=== PATIENT | male | born 2000 | race Hispanic/Latino ===

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

== ENCOUNTER 2020-03-27 01:05 | Emergency (ER) | payer OTHER, SELFPAY ==
[2020-03-27] MEDS ORDERED: Fentanyl 100 MCG/2 ML VIAL ONE ×5 (01:10→02:30)
[2020-03-27] MEDS ORDERED: Rocuronium Bromide 10 MG/ML (10ML VIAL) ONE (01:16)
[2020-03-27 01:22] LABS: #Basophils 0.1 thou/uL (0.0-0.2); #Eosinphils 0.1 thou/uL (0.0-0.7); #Lymphocytes 3.6 thou/uL (1.20-3.40); #Monocytes 0.5 thou/uL (0.11-0.59); #Neutrophils 5.5 thou/uL (1.40-6.50); %Basophils 0.7 % (0.0-1.0); %Eosinophils 1.3 % (0.0-10.0); %Lymphocytes 36.7 % (21.0-51.0); %Monocytes 5.2 % (0.0-10.0); %Neutrophils 56.1 % (42.0-75.0); Hemoglobin 16.4 g/dL (14.0-18.0); Mean Corpuscular HGB CONC 34.7 g/dL (32.0-36.0); Mean Corpuscular Hemoglobin 32.1 pg (27.0-31.0); Mean Corpuscular Volume 92.7 fL (78.0-98.0); Mean Platelet Volume 8.2 fL (7.4-10.4); Platelet Count 213 thou/uL (130-400); RBC Distribution Width 12.4 % (11.5-14.5); Red Blood Cell (RBC) Count 5.09 mill/uL (4.70-6.10); White Blood Cell (WBC) Count 9.7 thou/uL (4.8-10.8)
[2020-03-27 01:29] LABS: PTT 27.8 sec (22.9-36.1); Prothrombin Time 12.9 sec (12.0-14.7)
[2020-03-27] MEDS ORDERED: Fentanyl CADD 100 ML IV SCH (01:30)
[2020-03-27 01:38] LABS: Actual Bicarbonate (HCO3a) 21.8 mEq/L (22-28); Analyzer IN Cardio ER; Base Excess (BEa) -3.9 mEq/L (-2.0 to +3.0); CO2 Tension 41.9 mmHg (35.0-45.0); Calcium, Ionized (arterial) 1.17 mmol/L (1.12-1.30); Carboxyhemoglobin (COHb) 0.7 gm% (0.0-3.0); Hemoglobin (Hb) 17.1 g/dL (14.0-18.0); O2 Tension (PaO2), arterial 143.9 mmHg (80.0-100.0); Potassium - ABG Lab 3.82 mmol/L (3.70-5.30); pH, Arterial 7.33 (7.35-7.45)
[2020-03-27 01:39] LABS: Puncture Site RRA
[2020-03-27 01:40] LABS: ALV-art Gradient 88.925 mmHg (0-20)
[2020-03-27 01:43] LABS: Acetaminophen Less than 6.0 mcg/mL (10.0-30.0); Alcohol 174 mg/dL (Less than 10); Salicylate Less than 8.0 mg/dL (15.0-30.0)
[2020-03-27 01:54] LABS: ALT (SGPT) 43 U/L (8-55); AST (SGOT) 57 U/L (5-34); Albumin 4.3 g/dL (3.5-5.0); Alkaline Phosphatase 96 U/L (40-110); Anion Gap 19 mmol/L (10-20); BUN (Urea Nitrogen) 11 mg/dL (8.9-20.6); Bilirubin, Total 0.6 mg/dL (0.2-1.2); Calc. Creatinine Clearance 0 mL/min (70-130); Calcium 8.6 mg/dL (7.8-10.44); Carbon Dioxide 19 mmol/L (22-29); Chloride 108 mmol/L (98-107); Globulin 2.9 g/dL (2.4-3.5); Glucose 119 mg/dL (70-105); Potassium 3.6 mmol/L (3.5-5.1); Protein, Total 7.2 g/dL (6.0-8.3); Sodium 142 mmol/L (136-145)
[2020-03-27] MEDS ORDERED: Propofol 1,000 MG/100 ML VIAL IV ONE (02:13)
[2020-03-27] MEDS ORDERED: Ondansetron PF 4 MG/2 ML Vial IVP PRN (02:52)
[2020-03-27] MEDS ORDERED: Dextrose 5% in Water 1,000 ML IV PRN (02:52)
[2020-03-27] MEDS ORDERED: TETANUS AND DIPHTHERIA TOX/PF 0.5 ML DISP.SYRIN IM ONE (02:52)
[2020-03-27] MEDS ORDERED: hydrALAZINE 20 MG/ML VIAL SLOW IVP PRN (02:52)
[2020-03-27] MEDS ORDERED: Dextrose 50% Abboject 50 ML SYRINGE SLOW IVP PRN (02:52)
[2020-03-27] MEDS ORDERED: Ventilator Sedation Protocol 1 EACH FS ONE (02:57)
[2020-03-27] MEDS ORDERED: Lactated Ringer's 1,000 ML IV SCH ×2 (03:00)
[2020-03-27] MEDS ORDERED: Sodium Chloride 0.9% 1,000 ML IV SCH (03:00)
[2020-03-27] MEDS ORDERED: Lorazepam 2 MG/ML VIAL ONE (03:01)
[2020-03-27] MEDS ORDERED: Morphine 2 MG/ML VIAL SLOW IVP PRN (03:15)
[2020-03-27] MEDS ORDERED: DISCONTINUE PREVIOUS NARCOTIC PAIN MEDICATIONS AND BENZODIAZEPINES FS SCH (03:15)
[2020-03-27] MEDS ORDERED: Propofol BOLUS 1,000 MG/100 ML VIAL IV PRN (03:15)
[2020-03-27] MEDS ORDERED: Lorazepam 2 MG/ML VIAL SLOW IVP PRN (03:15)
[2020-03-27] MEDS ORDERED: Propofol 1,000 MG/100 ML VIAL IV PRN (03:15)
[2020-03-27] MEDS ORDERED: Fentanyl BOLUS 250 ML IVPB PRN (03:15)
--- NOTE | 2020-03-27 07:28 | RAD ---
ONE VIEW PELVIS: HISTORY: Trauma. Pain. FINDINGS: Intact bony pelvis. No fracture. IMPRESSION: No fracture. POS: PPP
--- NOTE | 2020-03-27 07:37 | RAD ---
ONE VIEW CHEST: HISTORY: Trauma. Pain. FINDINGS: Endotracheal tube at the level of the clavicles. Normal cardiac silhouette. Lungs and pleural space s are clear. No pneumothorax or acute osseous abnormalities. IMPRESSION: 1. No acute cardiopulmonary process. 2. Endotracheal tube at the level of the clavicles. POS: PPP
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
[2020-03-27] MEDS ORDERED: Famotidine/PF 20 mg/2ml Vial SLOW IVP SCH (09:00)
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
[2020-03-27] MEDS ORDERED: Iopamidol 370 76% 100 ML VIAL ONE (14:14)
== END 2020-03-27 04:05 ==
LOC: ERS 01:05
DX: S06.0X9A Concussion with loss of consciousness of unspecified duration, initial encounter (principal); S22.31XA Fracture of one rib, right side, initial encounter for closed fracture; S27.329A Contusion of lung, unspecified, initial encounter; S00.03XA Contusion of scalp, initial encounter; S00.83XA Contusion of other part of head, initial encounter; S50.812A Abrasion of left forearm, initial encounter; S80.812A Abrasion, left lower leg, initial encounter; S80.811A Abrasion, right lower leg, initial encounter; S60.511A Abrasion of right hand, initial encounter; S30.811A Abrasion of abdominal wall, initial encounter; S00.212A Abrasion of left eyelid and periocular area, initial encounter; F17.210 Nicotine dependence, cigarettes, uncomplicated; Z23 Encounter for immunization; W17.89XA Other fall from one level to another, initial encounter
CPT/HCPCS: 31500; 36415; 36600; 70450; 71045; 71260; 72125; 72170; 74177; 80053; 80307; 82805; 83690; 85025; 85610; 85730; 86850; 86900; 86901; 93005; 94002; 94760; 96365; 96375; 96376; 99292; G0390; J2060; J2270; J2704; J3010; Q9967

== ENCOUNTER 2020-03-27 22:49 | Inpatient (IN) | payer OTHER, SELFPAY ==
[2020-03-27 23:24] LABS: #Eosinphils 0.1 thou/uL (0.0-0.7); #Lymphocytes 2.6 thou/uL (1.20-3.40); #Monocytes 1.1 thou/uL (0.11-0.59); #Neutrophils 9.6 thou/uL (1.40-6.50); %Eosinophils 0.5 % (0.0-10.0); %Lymphocytes 19.3 % (21.0-51.0); %Neutrophils 72.2 % (42.0-75.0); Hemoglobin 15.3 g/dL (14.0-18.0); Mean Corpuscular HGB CONC 34.3 g/dL (32.0-36.0); Mean Corpuscular Hemoglobin 32.1 pg (27.0-31.0); Mean Corpuscular Volume 93.8 fL (78.0-98.0); Platelet Count 165 thou/uL (130-400); RBC Distribution Width 12.5 % (11.5-14.5); Red Blood Cell (RBC) Count 4.75 mill/uL (4.70-6.10); White Blood Cell (WBC) Count 13.2 thou/uL (4.8-10.8)
[2020-03-27 23:49] LABS: ALT (SGPT) 61 U/L (8-55); AST (SGOT) 169 U/L (5-34); Albumin 4.3 g/dL (3.5-5.0); Alkaline Phosphatase 94 U/L (40-110); Anion Gap 15 mmol/L (10-20); BUN (Urea Nitrogen) 12 mg/dL (8.9-20.6); Bilirubin, Total 1.6 mg/dL (0.2-1.2); Calc. Creatinine Clearance 0 mL/min (70-130); Carbon Dioxide 26 mmol/L (22-29); Chloride 103 mmol/L (98-107); Globulin 2.9 g/dL (2.4-3.5); Glucose 110 mg/dL (70-105); Potassium 3.7 mmol/L (3.5-5.1); Protein, Total 7.2 g/dL (6.0-8.3); Sodium 140 mmol/L (136-145)
[2020-03-28 00:06] LABS: Bacteria/HPF None Seen HPF (None Seen); Bilirubin Negative (Negative); Blood, Urine 3+ (Negative); Clarity Clear (Clear); Glucose, Urine (Dipstick) Normal (Negative); Ketone, Urine 10 mg/dL (Negative); Leukocyte Negative Leu/uL (Negative); Nitrite Negative (Negative); Protein, Urine (Dipstick) 30 mg/dL (Neg-Trace); RBC/HPF Greater than 50 HPF (0-3); Specific Gravity, Urine 1.022 (1.002-1.036); Squamous Epithelial 0-3 HPF (0-3); Urobilinogen Normal mg/dL (Less than 2); pH, Urine 5.5 (5.0-9.0)
[2020-03-28 00:10] LABS: Amphetamine Not Detected (NotDetected); Cocaine Metabolite Screen Not Detected (NotDetected); Medtox Reader # READER 1; Methamphetamine Not Detected (NotDetected); Opiate Screen Not Detected (NotDetected); Phencyclidine (PCP) Not Detected (NotDetected); THC/Cannabinoid Screen Detected (NotDetected)
[2020-03-28 00:11] LABS: Barbiturates Screen Not Detected (NotDetected); Benzodiazepine Screen Detected (NotDetected); Medtox Control Line Valid? VALID (VALID); Methadone Not Detected (NotDetected); Oxycodone Screen Not Detected (NotDetected); Tricyclic Screen Not Detected (NotDetected)
[2020-03-28 00:18] LABS: CK (CPK) 9111 U/L (30-200)
[2020-03-28] MEDS ORDERED: Ondansetron PF 4 MG/2 ML Vial IVP PRN (00:19)
[2020-03-28] MEDS ORDERED: Dextrose 50% Abboject 50 ML SYRINGE SLOW IVP PRN (00:19)
[2020-03-28] MEDS ORDERED: Ondansetron ODT 4 MG TAB PO PRN (00:19)
[2020-03-28] MEDS ORDERED: hydrALAZINE 20 MG/ML VIAL SLOW IVP PRN (00:19)
[2020-03-28] MEDS ORDERED: Dextrose 5% in Water 1,000 ML IV PRN (00:19)
[2020-03-28 00:52] LABS: Phosphorus 3.3 mg/dL (2.3-4.7)
[2020-03-28 01:41] VITALS: BMI 37.1
[2020-03-28] MEDS: Sodium Chloride 0.9% 1,000 ML IV SCH ×4 (01:47→17:48)
[2020-03-28] MEDS: Cyclobenzaprine 10 MG TAB PO PRN ×3 (01:47→20:40)
[2020-03-28] MEDS: traMADol HCl 50 MG TAB PO SCH ×4 (05:15→19:30)
[2020-03-28] MEDS: Acetaminophen 325 MG TAB PO SCH ×4 (05:16→19:29)
[2020-03-28 05:58] LABS: #Eosinphils 0.1 thou/uL (0.0-0.7); #Monocytes 0.6 thou/uL (0.11-0.59); #Neutrophils 5.4 thou/uL (1.40-6.50); %Basophils 0.2 % (0.0-1.0); %Eosinophils 1.4 % (0.0-10.0); %Lymphocytes 24.9 % (21.0-51.0); %Monocytes 7.2 % (0.0-10.0); %Neutrophils 66.4 % (42.0-75.0); Hemoglobin 14.4 g/dL (14.0-18.0); Mean Corpuscular HGB CONC 34.3 g/dL (32.0-36.0); Mean Corpuscular Hemoglobin 32.3 pg (27.0-31.0); Mean Corpuscular Volume 94.1 fL (78.0-98.0); Mean Platelet Volume 8.4 fL (7.4-10.4); Platelet Count 142 thou/uL (130-400); RBC Distribution Width 12.4 % (11.5-14.5); Red Blood Cell (RBC) Count 4.45 mill/uL (4.70-6.10); White Blood Cell (WBC) Count 8.1 thou/uL (4.8-10.8)
[2020-03-28 06:13] LABS: Anion Gap 11 mmol/L (10-20); BUN (Urea Nitrogen) 13 mg/dL (8.9-20.6); Calc. Creatinine Clearance 212 mL/min (70-130); Calcium 8.4 mg/dL (7.8-10.44); Carbon Dioxide 27 mmol/L (22-29); Chloride 108 mmol/L (98-107); Glucose 100 mg/dL (70-105); Potassium 3.8 mmol/L (3.5-5.1); Sodium 142 mmol/L (136-145)
[2020-03-28 06:26] LABS: CK (CPK) 6145 U/L (30-200)
[2020-03-28 08:34] LABS: SARS-CoV-2 PCR by NAA Not Detected (NotDetected)
[2020-03-28] MEDS ORDERED: FLU VACC QS2020-21(6MOS UP)/PF 60 MCG/0.5 ML SYRINGE IM ONE (09:00)
[2020-03-28] MEDS: Gabapentin 300 MG CAP PO SCH ×3 (09:05→20:41)
[2020-03-28] MEDS: Famotidine 20 MG TAB PO SCH ×2 (09:06→20:40)
[2020-03-28] MEDS: Polyethylene Glycol 3350 17 GM Packet PO SCH (09:07)
[2020-03-28] MEDS: Senokot S 8.6-50 MG TAB PO SCH ×2 (09:07→22:10)
[2020-03-29] MEDS: traMADol HCl 50 MG TAB PO SCH ×3 (00:02→13:02)
[2020-03-29] MEDS: Acetaminophen 325 MG TAB PO SCH ×3 (00:02→12:59)
[2020-03-29] MEDS: Sodium Chloride 0.9% 1,000 ML IV SCH ×3 (00:03→05:52)
[2020-03-29 05:24] LABS: #Basophils 0.1 thou/uL (0.0-0.2); #Eosinphils 0.2 thou/uL (0.0-0.7); #Lymphocytes 2.2 thou/uL (1.20-3.40); #Monocytes 0.6 thou/uL (0.11-0.59); #Neutrophils 4.7 thou/uL (1.40-6.50); %Basophils 0.7 % (0.0-1.0); %Lymphocytes 28.2 % (21.0-51.0); %Monocytes 7.9 % (0.0-10.0); %Neutrophils 60.2 % (42.0-75.0); Hemoglobin 12.8 g/dL (14.0-18.0); Mean Corpuscular HGB CONC 34.1 g/dL (32.0-36.0); Mean Corpuscular Hemoglobin 32.3 pg (27.0-31.0); Mean Corpuscular Volume 94.9 fL (78.0-98.0); Mean Platelet Volume 8.5 fL (7.4-10.4); Platelet Count 131 thou/uL (130-400); Red Blood Cell (RBC) Count 3.96 mill/uL (4.70-6.10); White Blood Cell (WBC) Count 7.8 thou/uL (4.8-10.8)
[2020-03-29 05:33] LABS: Anion Gap 11 mmol/L (10-20); BUN (Urea Nitrogen) 9 mg/dL (8.9-20.6); CK (CPK) 3749 U/L (30-200); Calc. Creatinine Clearance 242 mL/min (70-130); Calcium 8.1 mg/dL (7.8-10.44); Carbon Dioxide 25 mmol/L (22-29); Chloride 106 mmol/L (98-107); Glucose 95 mg/dL (70-105); Magnesium 1.8 mg/dL (1.6-2.6); Phosphorus 2.5 mg/dL (2.3-4.7); Potassium 3.7 mmol/L (3.5-5.1); Sodium 138 mmol/L (136-145)
[2020-03-29] MEDS: Gabapentin 300 MG CAP PO SCH (09:00)
[2020-03-29] MEDS: Polyethylene Glycol 3350 17 GM Packet PO SCH (09:00)
[2020-03-29] MEDS: Famotidine 20 MG TAB PO SCH (09:01)
[2020-03-29] MEDS: Senokot S 8.6-50 MG TAB PO SCH (09:01)
[2020-03-29 09:30] VITALS: TEMP 97.6
[2020-03-29 11:42] VITALS: BP 148/84
== END 2020-03-29 13:30 | DRG 964 ==
LOC: ERS 22:49 → SURG B 03-28 00:19 → EEVIPCON 03-28 00:19
PROVIDERS: ADMIT Surgery; ATTEND Surgery
DX: T79.6XXA Traumatic ischemia of muscle, initial encounter (principal); S06.0X9A Concussion with loss of consciousness of unspecified duration, initial encounter; S37.032A Laceration of left kidney, unspecified degree, initial encounter; S22.42XA Multiple fractures of ribs, left side, initial encounter for closed fracture; S52.612A Displaced fracture of left ulna styloid process, initial encounter for closed fracture; W13.2XXA Fall from, out of or through roof, initial encounter; F17.210 Nicotine dependence, cigarettes, uncomplicated; F10.229 Alcohol dependence with intoxication, unspecified
CPT/HCPCS: 29125; 36415; 71045; 72072; 72100; 80048; 80306; 81003; 81015; 82550; 83735; 84100; 85025; 87635; 90471; 90662; 94799; G0008; U0003; U0005